=== PATIENT | female | born 2000 | race Two or more races ===

== ENCOUNTER 2018-10-26 15:16 | Emergency (ER) | payer OTHER ==
[~2018-10-26] VITALS: Ht 162.6 cm; Wt 58.5 kg
[2018-10-26] MEDS ORDERED: KETOROLAC TROMETH 60MG/2ML VIAL IM ONE (18:00)
[2018-10-26] MEDS ORDERED: diphenhdrAMINE HCL 25 MG CAP PO ONE (18:00)
[2018-10-26] MEDS ORDERED: PROMETHAZINE HCL 25 MG/ML 1ML IM ONE (18:00)
[2018-10-26 18:42] VITALS: BP 106/78
== END 2018-10-26 18:45 | disposition home or self-care (01) ==
LOC: ER 15:16
DX: S00.93XA Contusion of unspecified part of head, initial encounter (principal); W22.8XXA Striking against or struck by other objects, initial encounter; Y93.89 Activity, other specified; Y92.89 Other specified places as the place of occurrence of the external cause; Y99.8 Other external cause status
CPT/HCPCS: 96372; 99283; J1885; J2550

== ENCOUNTER 2020-03-09 08:31 | Emergency (ER) | payer OTHER ==
[~2020-03-09] VITALS: Ht 162.6 cm; Wt 61.2 kg
[2020-03-09 08:33] VITALS: BP 124/70
[2020-03-09] MEDS ORDERED: cefTRIAXone W LIDOCAINE 1 GM IM IM ONE (08:45)
[2020-03-09] MEDS ORDERED: cefTRIAXone SOD 1,000 MG VL ONE (09:01)
== END 2020-03-09 09:17 | disposition home or self-care (01) ==
LOC: ER 08:31
DX: H10.32 Unspecified acute conjunctivitis, left eye (principal); L03.211 Cellulitis of face
CPT/HCPCS: 96372; 99283; J0696